=== PATIENT | female | born 1950 | race Caucasian/White ===

== ENCOUNTER 2020-12-05 11:06 | Emergency (ER) | payer MEDICARE, OTHER, SELFPAY ==
[2020-12-05 11:23] VITALS: BP 197/93; PULSE 77; RESP 14; TEMP 36.7; O2SAT 98; BMI 29.1
--- NOTE | 2020-12-05 12:13 | DI.CT.S_ITS ---
PROCEDURE: CT HEAD/BRAIN WO CON INDICATIONS: fall backward with soft tissue edema on occiput TECHNIQUE: Noncontrast 4.5 mm thick angled axial sections acquired from the foramen magnum to the vertex, with coronal and sagittal reformats. For radiation dose reduction, the following was used: automated exposure control, adjustment of mA and/or kV according to patient size. COMPARISON: None. FINDINGS: Image quality: Excellent. CSF spaces: Basal cisterns are patent. No extra-axial fluid collections. Ventricles are normal in size and shape. Brain: No midline shift. No intracranial masses or hemorrhage. Martinez-white matter interface is normal. Skull and face: Calvarium and visualized facial bones are intact, without suspicious lesions. Sinuses: Visualized sinuses and mastoids are clear. IMPRESSION: Negative for acute stroke, hemorrhage, or mass. No evidence of significant intracranial sequelae of acute trauma. Dictated by: Maurisio Taveras M.D. on 12/05/2020 at 13:02 Approved by: Maurisio Taveras M.D. on 12/05/2020 at 13:03
--- NOTE | 2020-12-05 12:13 | DI.CT.S_ITS ---
PROCEDURE: CT CERVICAL SPINE WO CON INDICATIONS: fall backwards with c2-4 pain on palpation TECHNIQUE: Noncontrast 3 mm thick sections acquired from the skull base to the T4 level. Sagittal and coronal reformats were then constructed. For radiation dose reduction, the following was used: automated exposure control, adjustment of mA and/or kV according to patient size. COMPARISON: None. FINDINGS: Image quality: Excellent. Bones: No fractures or dislocations. Visualized superior ribs are intact. Mild cervical spondylitic change. Soft tissues: Prevertebral soft tissues are normal in thickness. No paravertebral hematomas. No apical pneumothoraces. IMPRESSION: No evidence acute cervical fracture or dislocation. Mild cervical spondylitic change. Dictated by: Maurisio Taveras M.D. on 12/05/2020 at 13:03 Approved by: Maurisio Taveras M.D. on 12/05/2020 at 13:05
[2020-12-05 12:20] VITALS: BP 198/95; PULSE 86; RESP 18; O2SAT 99
--- NOTE | 2020-12-05 12:22 | ED.FALL ---
HPI - Fall <HALIMA Crespo - Last Filed: 12/05/20 13:45> General Chief Complaint: Fall Stated Complaint: Fell on back of head/right elbow/tailbone today Time Seen by Provider: 12/05/20 12:01 Source: patient Mode of arrival: Ambulatory History of Present Illness HPI Narrative: 70-year-old female presents to the emergency department brought in by POV with her after she tripped and fell backwards hitting the back of her head on this of floor and now complaining of head and neck pain. She denies losing consciousness, she states she was talking on the phone with her friend, her house is under construction, and she tripped over a 2 x 4, falling backwards hitting the back of her head on the floor. She states she told her friend that she fell and then got off of the phone. She called her to come pick her up and take her to the hospital because she states the sound of her head hitting the floor scared her. He denies any changes to her speech, mannerisms, activity, or mentation. She denies any changes in her balance, she does endorsing stars when this happened, she denies dizziness, nausea vomiting, vision changes, shortness of breath, chest pain, recent illness, or taking blood thinners. She states she does have a history of hypertension and takes have hydrochlorothiazide for this which she did take this morning. Fall from: standing Place fall occurred: home Loss of consciousness: none Prolonged down time: no Symptoms prior to fall: none Context: tripped/slipped Location of injury: head Associated symptoms (after fall): headache, neck pain and other Related Data Previous Rx's Medication Instructions Recorded methocarbamol 500 mg tablet 500 mg PO BEDTIME PRN #10 tab 12/05/20 Allergies Allergy/AdvReac Type Severity Reaction Status Date / Time morphine [MORPHINE] Allergy Unknown Verified 12/05/20 11:27 Review of Systems <HALIMA Crespo - Last Filed: 12/05/20 13:45> Review of Systems Narrative: General: denies fever, chills Head/Neck: endorses headache, now feeling neck pain, did not have pain in her neck until now. Eyes: denies visual changes, eye pain Cardio: denies chest pain, palpitations Respiratory: denies shortness of breath, cough GI: denies abdominal pain, nausea, vomiting, or diarrhea : denies dysuria, hematuria MSK: denies joint pain, muscle weakness Skin: denies rash, itching Neuro: denies numbness, tingling Patient History <HALIMA Crespo - Last Filed: 12/05/20 13:45> Social History Smoking Status: Unknown if ever smoked Smoking Status: Unknown if ever smoked alcohol intake frequency: holidays/special occasions only Substance Use Type: does not use Exam <HALIMA Crespo - Last Filed: 12/05/20 13:45> Narrative Exam Narrative: Independently reviewed vitals signs and nursing notes. General: Awake, alert, nontoxic, no cardiorespiratory distress Head/Neck: golf ball sized soft tissue edema over her occipital bone, small abrasion <1cm, no laceration, neck full range of motion with pain, Eyes: EOMI, conjunctiva normal, perrl Nose: nares patent, no rhinorrhea Mouth/Throat: moist mucus membranes, posterior pharynx normal, no oral lesions Cardio: Regular rate and rhythm, no peripheral edema, hypertensive Respiratory: respirations unlabored without wheezing, stridor, or rales. No retractions. GI: Abdomen soft, nontender MSK: Moves all extremities, neurovascularly intact Skin: Normal capillary refill, no rash Neuro: Normal speech and cognition, normal gait, cranial nerves 2-12 tested without any focal deficits Initial Vital Signs Initial Vital Signs: Vital Signs Temperature 98.0 F 12/05/20 11:23 Pulse Rate 77 12/05/20 11:23 Respiratory Rate 14 12/05/20 11:23 Blood Pressure 197/93 H 12/05/20 11:23 Pulse Oximetry 98 12/05/20 11:23 <Irwin Feng DO - Last Filed: 12/05/20 14:34> Initial Vital Signs Initial Vital Signs: Vital Signs Temperature 98.0 F 12/05/20 11:23 Pulse Rate 77 12/05/20 11:23 Respiratory Rate 14 12/05/20 11:23 Blood Pressure 197/93 H 12/05/20 11:23 Pulse Oximetry 98 12/05/20 11:23 Scores <HALIMA Crespo - Last Filed: 12/05/20 13:45> Nexus Score for C-Spine Focal Neurologic deficit present: No Midline spinal tenderness present: Yes Altered level of conciousness present: No Intoxication present: No Distracting Injury Present: No Nexus Criteria for C-spine: 1 <Irwin Feng DO - Last Filed: 12/05/20 14:34> Nexus Score for C-Spine Nexus Criteria for C-spine: 1 Course <HALIMA Crespo - Last Filed: 12/05/20 13:45> Orders Ordered: ED Orders 12/05/20 12:12 Urine Culture Stat Urine Microscopic Stat 12/05/20 12:13 CT cervical spine wo con Stat CT head/brain wo con Stat Discontinued Medications Ketorolac Tromethamine (Ketorolac 30 Mg/Ml Vial) 15 mg IM NOW ONE Stop: 12/05/20 12:23 Last Admin: 12/05/20 12:32 Dose: 15 mg Documented by: SANDRA Methocarbamol (Methocarbamol 500 Mg Tablet) 500 mg PO NOW ONE Stop: 12/05/20 12:17 Last Admin: 12/05/20 12:33 Dose: 500 mg Documented by: SANDRA Tramadol HCl (Tramadol 50 Mg Tablet) 50 mg PO NOW ONE Stop: 12/05/20 12:17 Last Admin: 12/05/20 12:33 Dose: 50 mg Documented by: SANDRA Vital Signs Vital signs: Vital Signs - 8 hr 12/05/20 11:23 12/05/20 12:20 12/05/20 12:38 Temperature 98.0 F Pulse Rate 77 86 64 Respiratory Rate 14 18 17 Blood Pressure 197/93 H 198/95 H 171/79 H Pulse Oximetry 98 99 96 12/05/20 13:00 12/05/20 13:30 Temperature Pulse Rate 62 60 Respiratory Rate 18 Blood Pressure 171/79 H Pulse Oximetry 95 96 <Irwin Feng DO - Last Filed: 12/05/20 14:34> Orders Ordered: ED Orders 12/05/20 12:12 Urine Culture Stat Urine Microscopic Stat 12/05/20 12:13 CT cervical spine wo con Stat CT head/brain wo con Stat Discontinued Medications Ketorolac Tromethamine (Ketorolac 30 Mg/Ml Vial) 15 mg IM NOW ONE Stop: 12/05/20 12:23 Last Admin: 12/05/20 12:32 Dose: 15 mg Documented by: SANDRA Methocarbamol (Methocarbamol 500 Mg Tablet) 500 mg PO NOW ONE Stop: 12/05/20 12:17 Last Admin: 12/05/20 12:33 Dose: 500 mg Documented by: SANDRA Tramadol HCl (Tramadol 50 Mg Tablet) 50 mg PO NOW ONE Stop: 12/05/20 12:17 Last Admin: 12/05/20 12:33 Dose: 50 mg Documented by: SANDRA Vital Signs Vital signs: Vital Signs - 8 hr 12/05/20 11:23 12/05/20 12:20 12/05/20 12:38 Temperature 98.0 F Pulse Rate 77 86 64 Respiratory Rate 14 18 17 Blood Pressure 197/93 H 198/95 H 171/79 H Pulse Oximetry 98 99 96 12/05/20 13:00 12/05/20 13:30 Temperature Pulse Rate 62 60 Respiratory Rate 18 Blood Pressure 171/79 H Pulse Oximetry 95 96 MDM - Fall <AGUSTÍN CrespoP - Last Filed: 12/05/20 13:45> Lab Data Labs: Lab Results 12/05/20 Range/Units 12:12 Urine RBC 0-1/hpf (0-5/HPF) Urine WBC 10-30/hpf H (0-5/HPF) Ur Squamous Epith Cells 1-5 /hpf (0-5/HPF) Urine Bacteria None seen (None) Ur Culture Indicated? Culture not indicate Urine Dip Bedside Urine Glucose Negative Bedside Urine Bilirubin - Negative Bedside Urine Ketone - Negative Urine Specific [place] 1.015 Bedside Urine Occult Blood - Negative Bedside Urine pH 7 Bedside Urine Protein - Negative Bedside Urine Urobilinogen - Negative Bedside Urine Nitrite - Negative Bedside Urine Leukocytes ++ [address] scan - head: Radiologist's Impression: PROCEDURE: CT HEAD/BRAIN WO CON INDICATIONS: fall backward with soft tissue edema on occiput TECHNIQUE: Noncontrast 4.5 mm thick angled axial sections acquired from the foramen magnum to the vertex, with coronal and sagittal reformats. For radiation dose reduction, the following was used: automated exposure control, adjustment of mA and/or kV according to patient size. COMPARISON: None. FINDINGS: Image quality: Excellent. CSF spaces: Basal cisterns are patent. No extra-axial fluid collections. Ventricles are normal in size and shape. Brain: No midline shift. No intracranial masses or hemorrhage. Martinez-white matter interface is normal. Skull and face: Calvarium and visualized facial bones are intact, without suspicious lesions. Sinuses: Visualized sinuses and mastoids are clear. IMPRESSION: Negative for acute stroke, hemorrhage, or mass. No evidence of significant intracranial sequelae of acute trauma. Dictated by: Maurisio Taveras M.D. on 12/05/2020 at 13:02 Approved by: Maurisio Taveras M.D. on 12/05/2020 at 13:03 CT - cervical spine: Radiologist's Impression: PROCEDURE: CT CERVICAL SPINE WO CON INDICATIONS: fall backwards with c2-4 pain on palpation TECHNIQUE: Noncontrast 3 mm thick sections acquired from the skull base to the T4 level. Sagittal and coronal reformats were then constructed. For radiation dose reduction, the following was used: automated exposure control, adjustment of mA and/or kV according to patient size. COMPARISON: None. FINDINGS: Image quality: Excellent. Bones: No fractures or dislocations. Visualized superior ribs are intact. Mild cervical spondylitic change. Soft tissues: Prevertebral soft tissues are normal in thickness. No paravertebral hematomas. No apical pneumothoraces. IMPRESSION: No evidence acute cervical fracture or dislocation. Mild cervical spondylitic change. Dictated by: Maurisio Taveras M.D. on 12/05/2020 at 13:03 Approved by: Maurisio Taveras M.D. on 12/05/2020 at 13:05 [facility] Narrative Medical decision making narrative: This is a 70-year-old female who presents to the emergency department for pain over her occipital bone and neck pain after a ground level fall. Patient did not have any loss of consciousness, no emesis mental status changes, history and neurologic exam are reassuring, patient did not have any focal deficits. She has soft tissue swelling over her occipital bone the size of a golf ball without laceration. #415 - Emergency Medicine: Utilization of CT for Minor Blunt Head Trauma (Adult) [] Patient is 18 or older, presenting with minor blunt head trauma. Head CT (including cosigned orders) was ordered by an emergency physician locums urgent care for trauma because (select one or more): [SATISFIES MIPS PERFORMANCE] Reasons: [x] Patient is 65 or older [] Patient GCS < 15 [] Patient has focal neurologic deficit Noncontrast Head CT is negative for acute stroke, hemorrhage, or mass. No evidence of significant intracranial sequelae of acute trauma. Cervical spine CT without contrast showing no evidence of acute cervical fracture or dislocation. Mild cervical spondylitic changes present. This is most likely a head injury with possible concussion as patient does endorse having a headache. She does have myalgias in her shoulders as well. Headache considerations include, but not limited to: Subarachnoid hemorrhage, but unlikely as CT head did not show acute intracranial sequelae of trauma. She does not have vision changes, difficulty with balance, or med dull status changes. HTN Emergency considered, but thought unlikely as patient's blood pressure reduced from 190s/100s to 170s/80s after analgesia. Other serious diagnoses considered unlikely given lack of red flag findings such as sudden onset, increasing frequency, immunocompromise, systemic signs (fever, chills, stiff neck, or rash), focal neurologic findings, trauma, blood thinners, etc. <Irwin Feng, DO - Last Filed: 12/05/20 14:34> Lab Data Labs: Lab Results 12/05/20 Range/Units 12:12 Urine RBC 0-1/hpf (0-5/HPF) Urine WBC 10-30/hpf H (0-5/HPF) Ur Squamous Epith Cells 1-5 /hpf (0-5/HPF) Urine Bacteria None seen (None) Ur Culture Indicated? Culture not indicate Urine Dip Bedside Urine Glucose Negative Bedside Urine Bilirubin - Negative Bedside Urine Ketone - Negative Urine Specific [place] 1.015 Bedside Urine Occult Blood - Negative Bedside Urine pH 7 Bedside Urine Protein - Negative Bedside Urine Urobilinogen - Negative Bedside Urine Nitrite - Negative Bedside Urine Leukocytes ++ 125 Esterase Discharge Plan Departure Patient Disposition: Home Clinical Impression: Head injury due to trauma Qualifiers: Encounter type: initial encounter Qualified Code(s): S09.90XA - Unspecified injury of head, initial encounter Instructions: How to Prevent Falls Activity Restrictions/Additional Instructions: *You have been diagnosed with a [head injury, neck pain and a possible concussion] *What to do: *Take medications as directed *Follow up with your primary care provider in 2-3 days, call for an appointment. Let them know you were seen in the Emergency Department and that we ask that you be seen in follow up *Return to ER if you should have any new, worsening or concerning symptoms, such as [ fever > 101F, neck pain or stiffness, vomiting, confusion, seizure, focal weakness, vision change, speech deficit or other concerning symptoms ] *If you do not have a primary care provider please contact the [facility] Resource line at [phone]. They will ask some questions about your medical history and help get you set up with a doctor in the community. Prescriptions: New methocarbamol 500 mg tablet 500 mg PO BEDTIME PRN (Reason: Muscle spasms) Qty: 10 RF: 0 Referrals: Nancy Alarcon DO [Primary Care Provider] - <Irwin Feng DO - Last Filed: 12/05/20 14:34> Cosign ED Attending Cosignature Attestation: Dr Feng Co-Sign Statement: I was available for consultation during this patient's emergency department visit. This chart is signed by myself for administrative purposes only. I did not have direct contact with this patient during this visit. They were seen independently by the APC.
[2020-12-05] MEDS: KETOROLAC 30 MG/ML VIAL 15 MG IM (12:32)
[2020-12-05] MEDS: methocarbamoL 500 MG TABLET PO (12:33)
[2020-12-05] MEDS: TRAMADOL 50 MG TABLET PO (12:33)
[2020-12-05 12:38] VITALS: BP 171/79; PULSE 64; PULSE 67; RESP 17; RESP 18; O2SAT 96; O2SAT 99
[2020-12-05 13:00] VITALS: PULSE 62; O2SAT 95
[2020-12-05 13:03] LABS: Bacteria Urine None Seen; RBC Urine 0-1/HPF (0-5/HPF); Squamous Epithelial Cell Urine 1-5 /HPF (0-5/HPF); WBC Urine 10-30/HPF (0-5/HPF)
[2020-12-05 13:30] VITALS: BP 171/79; PULSE 60; RESP 18; O2SAT 96
== END 2020-12-05 13:50 | disposition home or self-care (01) ==
PROVIDERS: Emergency Provider Nurse Practitioner Critical Care Medicine; PCP Family Medicine
DX: S09.8XXA Other specified injuries of head, initial encounter (principal); M54.2 Cervicalgia; W01.198A Fall on same level from slipping, tripping and stumbling with subsequent striking against other object, initial encounter
CPT/HCPCS: 70450; 72125; 81003; 81015; 87086; 96372; 99284; J1885

== ENCOUNTER 2021-01-20 09:05 | Emergency (ER) | payer MEDICARE, OTHER, SELFPAY ==
[2021-01-20 09:31] VITALS: BP 174/86; PULSE 92; RESP 18; TEMP 35.9; O2SAT 98; BMI 30.5
[2021-01-20 09:47] LABS: Appearance Urine UA Turbid; Color Urine UA Red
[2021-01-20 09:48] LABS: Bacteria Urine None Seen; Culture Indicated Urine Specimen Cultured; RBC Urine >100/HPF (0-5/HPF); WBC Urine >100/HPF (0-5/HPF)
--- NOTE | 2021-01-20 09:48 | ED.FEMALEGU ---
HPI - Female Genitourinary General Chief complaint: Urogenital-Female Stated complaint: blood in urine, going to bathroom a lot Time Seen by Provider: 01/20/21 09:20 Source: patient and family Mode of arrival: Ambulatory Limitations: no limitations History of Present Illness HPI Narrative: Otherwise healthy 70-year-old woman with a distant history of cystocele repair and recurrent cystocele, hypertension presents with acute onset of dysuria and hematuria. Symptoms started about 2:00 a.m. with dysuria shortly followed by mild hematuria and by this morning she is noticing blood clots with urination and frequency. She is having bladder spasm but no abdominal pain, no vaginal complaints no change to bowel habits. She reports no fevers, prior history of urinary tract infections, no complications with kidney stones or renal system. No chest pain, palpitations or headaches. Related Data Previous Rx's Medication Instructions Recorded methocarbamol 500 mg tablet 500 mg PO BEDTIME PRN #10 tab 12/05/20 cephalexin 500 mg capsule 500 mg PO TID #15 cap 01/20/21 phenazopyridine 100 mg tablet 100 mg PO TID PRN #6 tab 01/20/21 (Pyridium) Allergies Allergy/AdvReac Type Severity Reaction Status Date / Time morphine [MORPHINE] Allergy Unknown Verified 12/05/20 11:27 Review of Systems Review of Systems Narrative: Remainder of complete review of systems is otherwise unremarkable except for that included in the HPI. Patient History Medical History (Updated 01/20/21 @ 09:55 by Yoselin Rhodes MD) Cystocele Hypertension alcohol intake frequency: holidays/special occasions only Substance Use Type: does not use Exam Narrative Exam Narrative: General: Alert appropriate in no acute distress Respiratory: Able to speak in full sentences, no obvious respiratory distress Abdomen: No abdominal tenderness, mild suprapubic tenderness, no flank pain. Skin: No obvious rashes, warm and dry Neurologic: Grossly intact no obvious asymmetries or abnormalities Psych: appropriate insight and affect, cooperative Initial Vital Signs Initial Vital Signs: Vital Signs Temperature 96.7 F L 01/20/21 09:31 Pulse Rate 92 H 01/20/21 09:31 Respiratory Rate 18 01/20/21 09:31 Blood Pressure 174/86 H 01/20/21 09:31 Pulse Oximetry 98 01/20/21 09:31 Course Orders Ordered: ED Orders 01/20/21 09:38 Urinalysis and Microscopic Stat Urine Culture Stat Cephalexin HCl (Cephalexin 250 Mg Capsule) 500 mg PO NOW ONE Stop: 01/20/21 09:49 Phenazopyridine HCl (Phenazopyridine 100 Mg Tablet) 100 mg PO NOW ONE Stop: 01/20/21 09:49 Vital Signs Vital signs: Vital Signs - 8 hr 01/20/21 09:31 Temperature 96.7 F L Pulse Rate 92 H Respiratory Rate 18 Blood Pressure 174/86 H Pulse Oximetry 98 MDM - Female Genitourinary Lab Data Labs: Lab Results 01/20/21 Range/Units 09:38 Urine Color Red Urine Appearance Turbid Urine pH TNP Ur Specific [place] TNP Urine Protein TNP Urine Glucose (UA) TNP Urine Ketones TNP Urine Occult Blood TNP Urine Nitrate TNP Urine Bilirubin TNP Urine Urobilinogen TNP Ur Leukocyte Esterase TNP Urine RBC >100/hpf H (0-5/HPF) Urine WBC >100/hpf H (0-5/HPF) Urine Bacteria None seen (None) Ur Culture Indicated? Specimen cultured MDM Narrative Medical decision making narrative: 70-year-old woman with acute onset hematuria and dysuria with no systemic symptoms of pyelonephritis, sepsis, kidney stones. She is not on blood thinners has never had this type of bleeding before. With the dysuria and frequency I suspect that this is a simple bladder infection will treat with Keflex and peridium. If symptoms do not improve will clearly need additional workup. Given the symptomatic hematuria the probability of some type of bladder neoplasm is far less likely at this time. She is safe for home discharge Discharge Plan Departure Patient Disposition: Home Clinical Impression: Urinary tract infection Instructions: DI for Urinary Tract Infection (UTI) Activity Restrictions/Additional Instructions: Thank you for coming in today Your symptoms are very consistent with a simple bladder infection. I am going to have you take 5 days of cephalexin, 3 times a day , an antibiotic to get rid of the infection. For your pain symptoms, I am going to have you use Pyridium, this is medication that helps with bladder spasms If you have developing fevers, abdominal pain, flank pain or new symptoms or your symptoms are not improved by tomorrow, you do need to return to the emergency department. Your urine has been cultured and if the bacteria that grows is not treated with cephalexin, we will give you a call to change antibiotics. I hope you feel better Prescriptions: New cephalexin 500 mg capsule 500 mg PO TID Qty: 15 0RF phenazopyridine [Pyridium] 100 mg tablet 100 mg PO TID PRN (Reason: pain) Qty: 6 0RF No Action methocarbamol 500 mg tablet 500 mg PO BEDTIME PRN (Reason: Muscle spasms) Qty: 10 0RF Referrals: Nancy Alarcon DO [Primary Care Provider] -
[2021-01-20] MEDS: cephALEXin 250 MG CAPSULE 500 MG PO (10:16)
[2021-01-20] MEDS: PHENAZOPYRIDINE 100 MG TABLET PO (10:16)
[2021-01-20 10:45] VITALS: BP 147/74; PULSE 65; RESP 16; O2SAT 99
== END 2021-01-20 10:50 | disposition home or self-care (01) ==
PROVIDERS: Emergency Provider Emergency Medicine; PCP Family Medicine
DX: N39.0 Urinary tract infection, site not specified (principal)
CPT/HCPCS: 81001; 87077; 87086; 87186; 99283

== ENCOUNTER → 2021-02-02 12:44 | Outpatient (CLI) | payer MEDICARE, OTHER, SELFPAY | PROVIDERS: PCP Family Medicine; Visit Provider Physician Assistant | DX: N39.0 Urinary tract infection, site not specified (principal) | CPT/HCPCS: 87077; 87086; 87186 ==

== ENCOUNTER → 2021-03-06 13:28 | Outpatient (CLI) | payer MEDICARE, OTHER, SELFPAY ==
--- NOTE | 2021-03-06 | DI.MRI.S_ITS ---
PROCEDURE: MR HEAD/BRAIN WO CON INDICATIONS: Other amnesia TECHNIQUE: Non-contrast axial T1 spin echo, axial T2 fast spin echo, sagittal and axial FLAIR, coronal T2 fast spin echo, axial gradient echo, axial diffusion and ADC through the brain. COMPARISON: None. FINDINGS: Image quality: This examination is limited by involuntary motion artifact. CSF spaces: Ventricles appear symmetric in size and shape. Basal cisterns are patent. No extra-axial fluid collections. Brain: No intracranial bleeds or mass effects. There is cerebral volume loss for age. There are periventricular and deep white matter chronic small vessel ischemic changes. Brainstem appears normal. Diffusion-weighted images show no acute ischemic insults. No chronic ischemic insults. Normal intravascular flow voids are present. Skull and face: Calvarial bone marrow is normal in signal. Orbits are normal. Note is made of bilateral lens replacements. Sinuses: Sinuses and mastoids are clear. IMPRESSION: Unremarkable intracranial study for age, with note made of brain parenchymal volume loss and chronic small vessel ischemic change. No findings of acute or subacute infarction can be seen. Dictated by: Yong Arriaza M.D. on 03/06/2021 at 13:58 Approved by: Yong Arriaza M.D. on 03/06/2021 at 13:59
== END ==
PROVIDERS: PCP Family Medicine; Referring Provider Family Medicine; Visit Provider Family Medicine
DX: R41.3 Other amnesia (principal)
CPT/HCPCS: 70551

== ENCOUNTER 2023-03-28 19:11 | Emergency (ER) | payer MEDICARE, OTHER, SELFPAY ==
[2023-03-28 19:18] VITALS: BP 176/84; PULSE 72; RESP 16; TEMP 36.2; O2SAT 97; BMI 30.8
--- NOTE | 2023-03-28 19:34 | ED.GENADULT ---
HPI - General Adult General Chief complaint: Ear Stated complaint: rubber end of hearing aid lodged in ear Time Seen by Provider: 03/28/23 19:27 Source: patient and family Mode of arrival: Ambulatory History of Present Illness HPI narrative: Patient is a 72-year-old female with a piece of her hearing aid stuck in her left ear canal. She has never had this happened before. When she took the hearing aid out earlier today the police did not come with it. She did not attempt to remove it at home prior to arrival. Related Data Previous Rx's Medication Instructions Recorded phenazopyridine 100 mg tablet 100 mg PO TID PRN pain 6 doses #6 01/20/21 (Pyridium) tabs Allergies Allergy/AdvReac Type Severity Reaction Status Date / Time morphine [MORPHINE] Allergy Unknown Verified 02/02/21 12:00 Review of Systems ENT Ears, Nose, Mouth, and Throat: Reports system reviewed and no additional complaints, except as documented Patient History Medical History Cystocele Hypertension Social History Smoking Status: Never smoker Smoking Status: Never smoker alcohol intake frequency: holidays/special occasions only Substance Use Type: does not use Exam Initial Vital Signs Initial Vital Signs: Vital Signs Temperature 97.1 F L 03/28/23 19:18 Pulse Rate 72 03/28/23 19:18 Respiratory Rate 16 03/28/23 19:18 Blood Pressure 176/84 H 03/28/23 19:18 Pulse Oximetry 97 03/28/23 19:18 Oxygen Delivery Method Room Air 03/28/23 19:18 [facility] Other: What appears to be a piece of rubber in the left external auditory canal Procedures Foreign Body EAR Location: ear canal (L) Foreign Body Suspected: other (Piece of hearing aid) TM intact pre-procedure: unable to visualize Foreign Body Removed: yes Foreign Body Removal Technique: instrumentation Tympanic Membrane Intact Post Procedure: Yes Patient Tolerated Procedure: Well and No complications Course Vital Signs Vital signs: Vital Signs - 8 hr 03/28/23 19:18 Temperature 97.1 F L Pulse Rate 72 Respiratory Rate 16 Blood Pressure 176/84 H Pulse Oximetry 97 Oxygen Delivery Method Room Air Medical Decision Making [facility] Narrative Medical decision making narrative: He was unable to visualize the tympanic membrane prior to removal of the piece of rubber. The portion of the hearing aid was removed without incident. Afterwards the tympanic membrane is intact. The external auditory canal is intact. Patient states she feels better. Discharge patient home with return precautions. Discharge Plan Departure Patient Disposition: Home Clinical Impression: Foreign body in left ear Activity Restrictions/Additional Instructions: I was able to completely remove the piece from the hearing aid. It appears that your eardrum is intact without any damage. The ear canal was intact without any damage as well. Return to the emergency department for new symptoms. Prescriptions: No Action phenazopyridine [Pyridium] 100 mg tablet 100 mg PO TID PRN (Reason: pain) Qty: 6 0RF Referrals: Nancy Alarcon DO [Primary Care Provider] - Stand Alone Forms: Patient Portal/API
== END 2023-03-28 19:42 | disposition home or self-care (01) ==
PROVIDERS: Emergency Provider Emergency Medicine; PCP Family Medicine
DX: T16.2XXA Foreign body in left ear, initial encounter (principal)
CPT/HCPCS: 69200; 99281; 99282

== ENCOUNTER → 2023-09-07 17:40 | Outpatient (CLI) | payer MEDICARE, OTHER, SELFPAY ==
--- NOTE | 2023-09-07 17:42 | DI.RAD.S_ITS ---
PROCEDURE: XR SHOULDER LT MIN 2V INDICATIONS: LUE/shoulder pain TECHNIQUE: 3 views of the shoulder were acquired. COMPARISON: None. FINDINGS: Bones: No fractures or dislocations. [place] inferior to the AC joint. Moderate degenerative changes. No suspicious bony lesions. Visualized ribs appear intact. Soft tissues: No suspicious soft tissue calcifications. IMPRESSION: No fracture seen. [place] inferior to the AC joint. This could represent a loose body or in the setting of prior calcific tendinitis. Moderate left shoulder degenerative changes. Dictated by: Alfredo Chavez M.D. on 09/07/2023 at 19:21 Approved by: Alfredo Chavez M.D. on 09/07/2023 at 19:22
--- NOTE | 2023-09-07 17:42 | DI.RAD.S_ITS ---
PROCEDURE: XR CERVICAL SPINE 2V OR 3V INDICATIONS: LUE pain TECHNIQUE: 3 view(s) of the cervical spine were acquired. COMPARISON: [facility], CT, CT CERVICAL SPINE WO CON, 12/05/2020, 12:46. FINDINGS: Bones: No fractures or dislocations to the C7 level. Moderate degenerative changes in the cervical spine. This is demonstrable by joint space loss, uncovertebral joint hypertrophy, and small osteophytes. The lateral masses of C1 appear intact on the odontoid view. No suspicious bony lesions. Soft tissues: No prevertebral soft tissue swelling. IMPRESSION: Moderate degenerative changes in the cervical spine. Dictated by: Alfredo Chavze M.D. on 09/07/2023 at 19:22 Approved by: Alfredo Chavez M.D. on 09/07/2023 at 19:24
== END ==
PROVIDERS: PCP Family Medicine; Referring Provider Physician Assistant Surgical; Visit Provider Physician Assistant Surgical
DX: M25.512 Pain in left shoulder (principal); M47.22 Other spondylosis with radiculopathy, cervical region
CPT/HCPCS: 72040; 73030

== ENCOUNTER → 2023-10-16 08:45 | Outpatient (CLI) | payer MEDICARE, OTHER, SELFPAY ==
--- NOTE | 2023-10-16 | DI.MRI.S_ITS ---
PROCEDURE: MR SHOULDER LT WO CON INDICATIONS: Impingement syndrome of left shoulder TECHNIQUE: Noncontrast oblique coronal T2 fast spin echo with fat saturation, oblique sagittal T1 spin echo and T2 fast spin echo with fat saturation, axial T1 spin echo and T2 fast spin echo with fat saturation through the shoulder. COMPARISON: None. FINDINGS: Image quality: Excellent. Rotator cuff: There is full-thickness rupture of distal supraspinatus at its insertion on the humeral head with up to 2.1 cm medial retraction of torn tendon fibers to the level of acromion. Moderate grade articular surface partial-thickness tear involving distal infraspinatus is seen at its insertion on the humeral head extending to musculotendinous junction. Tendinosis and low-grade intrasubstance partial-thickness tear involving distal subscapularis is also noted. Sagittal images demonstrate moderate supraspinatus muscle atrophy. Bones and bursae: No bone marrow contusions or fractures. Moderate acromioclavicular joint and glenohumeral joint osteoarthritic changes are seen with joint space narrowing, subchondral sclerosis and marginal osteophyte formation. There is type 1 acromion without an os acromiale. There is moderate amount of joint fluid and subacromial subdeltoid bursal fluid, 1.1 x 1.2 cm loose body is noted in subcoracoid bursa series 6, image 13 and series 8, image 3. Capsule and soft tissues: There is extensive fraying of posterior superior glenoid labrum with T2 hyperintense signal suggestive of extensive posterior superior labral tear. The long head of the biceps tendon demonstrates normal location and morphology. The rotator interval appears normal, without fibrosis. The coracohumeral ligament is normal in thickness. IMPRESSION: 1. Full-thickness rupture of distal supraspinatus at its insertion on the humeral head with up to 2.1 cm medial retraction of torn tendon fibers to the level of acromion. Moderate supraspinatus muscle atrophy. 2. [id number] articular surface partial-thickness tear involving distal infraspinatus extending to musculotendinous junction. Low-grade intrasubstance partial-thickness tear involving distal subscapularis. 3. No marrow edema. No acute fracture or dislocation. Moderate acromioclavicular joint and glenohumeral joint osteoarthritis. Moderate amount of subacromial subdeltoid bursal fluid and subcoracoid bursal fluid with suggestion loose body within subcoracoid bursa as above. 4. Finding is concerning for left glenoid posterior superior labral tear. Dictated by: Vlad Negrete M.D. on 10/16/2023 at 12:47 Approved by: Vlad Negrete M.D. on 10/16/2023 at 12:55
== END ==
PROVIDERS: PCP Family Medicine; Referring Provider Family Medicine; Visit Provider Family Medicine
DX: S46.012A Strain of muscle(s) and tendon(s) of the rotator cuff of left shoulder, initial encounter (principal); M19.012 Primary osteoarthritis, left shoulder; M62.512 Muscle wasting and atrophy, not elsewhere classified, left shoulder; M75.42 Impingement syndrome of left shoulder
CPT/HCPCS: 73221

== ENCOUNTER → 2023-11-23 12:02 | Outpatient (CLI) | payer MEDICARE, OTHER, SELFPAY ==
--- NOTE | 2023-11-23 12:04 | DI.ECHO.S_ITS ---
[facility] : : [address] : : [place] : : [id number] : : Phone: [phone] Echocardiogram Report + + :Name: CHRISTIANO BLUE Study Date: 11/23/2023 Height: 67 in : :[facility] ReadingLocation: Weight: 198 lb : : Gender: Female BSA: 2.0 m2 : :: 1950 Age: 73 yrs BP: 154/94 mmHg: :Reason For Study: Atrial fibrillation - paroxysmal : :Ordering Physician: CHELITA, : :DEDRA Montes Performed By: Alexia Wells : :Referring: DEDRA MERLOS : + + Interpretation Summary Normal left ventricle size with ejection fraction 60-65%. Mild mitral regurgitation. Procedure: A two-dimensional transthoracic echocardiogram with color flow and Doppler was performed. The study quality was technically adequate. There is no prior echocardiogram noted for this patient. The patient was in sinus rhythm with heart rates between 47-60 bpm during the exam. Left Ventricle: The left ventricle is normal in size and wall thickness. The ejection fraction is estimated to be 60-65%. There are no focal wall motion abnormalities. Diastolic function could not be accurately assessed due to confounding valvular disease. Right Ventricle: The right ventricle is normal in size and function. Atria: Both atria are normal in size. Doppler interrogation and injection of saline echo contrast shows no evidence for an interatrial shunt. Mitral Valve: The mitral valve leaflets appear normal. There is no evidence of stenosis, fluttering, or prolapse. No significant mitral valve stenosis. There is mild mitral regurgitation. Aortic Valve: The aortic valve is trileaflet. The aortic valve opens well. There is no aortic valve stenosis. No aortic regurgitation is present. Tricuspid Valve: The tricuspid valve leaflets are thin and pliable. There is a trace or physiologic amount of tricuspid regurgitation. The right ventricular systolic pressure is estimated to be at least 17 mmHg based on an estimated right atrial pressure of 3 mm Hg. Pulmonic Valve: The pulmonic valve leaflets are thin and pliable; valve motion is normal. There is a trace or physiologic amount of pulmonic regurgitation. Great Vessels: The aortic root is normal size. The ascending aorta is normal in size. The aortic arch is normal in size. The pulmonary artery is normal size. The IVC is of normal diameter and collapses greater than 50% with a sniff. This suggests a low right atrial pressure of 3 mm Hg. Pericardium/ Pleura There is an anterior echo-free space consistent with a fat pad. There is a trivial pericardial effusion noted. There is no pleural effusion. MMode/2D Measurements & Calculations LVIDd: 4.6 cm LVOT diam: 1.9 cm LVIDs: 3.5 cm Ao root diam: 3.0 cm FS: 24.6 % asc Aorta Diam: 3.3 cm EPSS: 0.37 cm IVSd: 0.80 cm LVPWd: 0.79 cm LV saldivar. diameter/BSA (cm/m^2): 2.3 LV sys. diameter/BSA (cm/m^2): 1.7 LA A2 area: 12.9 cm2 RA long axis: 4.6 cm LA A4 area: 15.2 cm2 RA area: 11.4 cm2 LA length (vol): 5.1 cm RA vol: 24.4 ml LA vol: 32.2 ml RA : 12.1 ml/m2 LA vol index: 16.0 ml/m2 IVC diam: 2.0 cm TAPSE: 2.1 cm LVAd ap4: 23.8 cm2 LVAs ap4: 14.1 cm2 LVLs ap4: 6.1 cm LVAd ap2: 26.4 cm2 LVLd ap2: 7.0 cm LVAs ap2: 11.5 cm2 LVLs ap2: 5.5 cm Doppler Measurements & Calculations Ao V2 max: 118.5 cm/sec LVOT Max Kenneth: 85.3 cm/sec Ao V2 mean: 79.2 cm/sec LV V1 max P.9 mmHg Ao max P.6 mmHg LV V1 VTI: 21.2 cm Ao mean P.8 mmHg PENNY(I,D): 2.0 cm2 Ao V2 VTI: 28.3 cm PENNY(V,D): 1.9 cm2 sev ratio: 0.75 PENNY indexed to BSA (cm^2/m^2): 1.0 MV E max kenneth: 95.0 cm/sec TR max kenneth: 185.6 cm/sec MV A max kenneth: 63.0 cm/sec TR max P.8 mmHg MV E/A: 1.5 PA pr(Accel): 24.2 mmHg Med Peak E' Kenneth: 7.2 cm/sec E/E' med: 13.2 Lat Peak E' Kenneth: 9.0 cm/sec E/E' lat: 10.6 E/e' average: 11.9 MV dec time: 0.19 sec SV(LVOT): 57.5 ml Electronically signed by: Kayden Murguia on Reading Physician:11/23/2023 05:30 PM
== END ==
LOC: ECHO 12:03
PROVIDERS: PCP Family Medicine; Referring Provider Family Medicine; Visit Provider Family Medicine
DX: I34.0 Nonrheumatic mitral (valve) insufficiency (principal); I48.0 Paroxysmal atrial fibrillation
CPT/HCPCS: 93306; Q9957

== ENCOUNTER 2024-09-09 16:17 | Emergency (ER) | payer MEDICARE, OTHER, SELFPAY ==
[2024-09-09] VITALS (14 sets, daily range): BP systolic 112–174; BP diastolic 57–85; PULSE 60–75; RESP 12–20; TEMP 36.6; O2SAT 88–99; BMI 30.4
[2024-09-09 17:06] LABS: Add Manual Diff / Slide Review NO; Hematocrit 46.2 % (36-46); Hemoglobin 16.0 g/dL (12.0-16.0); Lymphocytes Absolute Auto 1700 /uL (1100-4500); Mean Corpuscular HGB Conc 34.6 % (30-36); Mean Corpuscular Hemoglobin 29.8 PG (26-34); Mean Corpuscular Volume 86.1 fL (80-100); Platelet Count 297 X10^3/uL (150-400)
[2024-09-09 17:20] LABS: Alanine Aminotransferase 26 IU/L (<35); Albumin 4.7 g/dL (3.5-5.0); Albumin Globulin Ratio 1.5 (1.0-2.8); Alkaline Phosphatase 96 U/L (38-126); Blood Urea Nitrogen 15 mg/dL (7-17); Calcium 9.8 mg/dL (8.4-10.2); Carbon Dioxide 24 mmol/L (22-32); Chloride 98 mmol/L (98-107); Estimated Glomerular Filt Rate > 60 mL/min (>60); Globulin 3.1 g/dL (1.7-4.1); Glucose 147 mg/dL (70-99); HEMOLYSIS < 15 (0-50); Lipase 35 U/L (23-300); Potassium 3.3 mmol/L (3.4-5.1); Sodium 135 mmol/L (137-145); Total Protein 7.8 g/dL (6.3-8.2)
--- NOTE | 2024-09-09 17:44 | EKG_ITS ---
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
[2024-09-09 18:08] LABS: Culture Indicated Urine Cult Not Indicated
--- NOTE | 2024-09-09 19:19 | ED.ABDPAIN ---
HPI - Abdominal Pain General Chief Complaint: Abdominal Pain Stated Complaint: pain in left side, vomitting, diarrhea Time Seen by Provider: 09/09/24 19:19 Source: patient Mode of arrival: Ambulatory History of Present Illness HPI narrative: 74-year-old female has left lower quadrant abdominal pain with nausea and vomiting and diarrhea onset this morning about 6:00 a.m., multiple episodes nonbloody emesis through the day, multiple episodes of loose stool without black or red color throughout the day. Denies history of colitis, diverticulitis, Crohn's disease. No painful or frequent urination. Denies history of kidney stones. No trauma injury new activities. No recent exposure to antibiotics. No household members or close contacts to persons with similar symptoms. Denies headache. Related Data Previous Rx's ?Medication ?Instructions ?Recorded dicyclomine 20 mg tablet 20 mg PO BID #10 tabs 09/09/24 Allergies Allergy/AdvReac Type Severity Reaction Status Date / Time morphine (MORPHINE) Allergy Unknown Verified 09/09/24 16:25 Review of Systems Review of Systems Narrative: as per HPI Patient History Medical History Cystocele Hypertension Social History Smoking Status: Never smoker Smoking Status: Never smoker alcohol intake frequency: holidays/special occasions only Exam Narrative Exam Narrative: GENERAL: Well-developed patient, in mild distress. HEAD: Atraumatic. Normocephalic. EYES: Pupils equal round and reactive. Extraocular motions intact. No scleral icterus. No injection or drainage. ENT: Nose without bleeding, purulent drainage. Throat without erythema, tonsillar hypertrophy or exudate. Airway patent. NECK: Trachea midline. Non tender CARDIOVASCULAR: Regular rate and rhythm without murmurs, gallops, or rubs. RESPIRATORY: Clear to auscultation. Breath sounds equal bilaterally. No wheezes, rales, or rhonchi. GASTROINTESTINAL: Abdomen soft, non-tender, nondistended. Mild tenderness left lower quadrant. Bowel tones unremarkable. EXTREMITIES: No edema or joint tenderness. BACK: Nontender without deformity or crepitance. No flank tenderness. NEURO: AOx3. Motor functions grossly nonfocal. SKIN: No rash or erythema of visible areas Initial Vital Signs Initial Vital Signs: Vital Signs Temperature 97.8 F 09/09/24 16:23 Pulse Rate 68 09/09/24 16:23 Respiratory Rate 20 09/09/24 16:23 Blood Pressure 174/85 H 09/09/24 16:23 Pulse Oximetry 99 09/09/24 16:23 Oxygen Delivery Method Room Air 09/09/24 16:23 Course Orders Ordered: ED Orders 09/09/24 19:23 CT abdomen pelvis w con Stat Discontinued Medications Dicyclomine HCl (Dicyclomine 10 Mg Capsule) 20 mg PO NOW ONE Stop: 09/09/24 21:01 Last Admin: 09/09/24 21:38 Dose: 20 mg Documented By: AICHA Hydromorphone HCl (Hydromorphone Hcl 0.5 Mg/0.5 Ml Syringe) 0.5 mg IV NOW ONE Stop: 09/09/24 19:47 Last Admin: 09/09/24 19:52 Dose: 0.5 mg Documented By: AICHA Sodium Chloride (Normal Saline 0.9%) 1,000 mls @ 500 mls/hr IV BOLUS ONE Stop: 09/09/24 21:22 Last Infusion: 09/09/24 21:38 Dose: Infused Documented By: Admin: 09/09/24 19:43 Dose: 500 mls/hr Documented By: AICHA Ketorolac Tromethamine (Ketorolac 30 Mg/Ml Vial) 15 mg IV NOW ONE Stop: 09/09/24 19:38 Last Admin: 09/09/24 19:43 Dose: 15 mg Documented By: AICHA Loperamide HCl (Loperamide 2 Mg Capsule) 2 mg PO NOW ONE Stop: 09/09/24 21:01 Last Admin: 09/09/24 21:40 Dose: 2 mg Documented By: AICHA Ondansetron HCl (Ondansetron 4 Mg/2 Ml Inj) 4 mg IV NOW PRN PRN Reason: Nausea And Vomiting Ondansetron HCl (Ondansetron 4 Mg Odt) 4 mg PO NOW PRN PRN Reason: Nausea And Vomiting Ondansetron HCl (Ondansetron 4 Mg/2 Ml Inj) 4 mg IV NOW ONE Stop: 09/09/24 19:49 Last Admin: 09/09/24 19:52 Dose: 4 mg Documented By: AICHA Ondansetron HCl (Ondansetron 4 Mg Odt Prepack) 1 bottle MISC DIRECTED ONE Stop: 09/09/24 22:52 Potassium Chloride (Potassium Chloride 20 Meq/15 Ml Udc) 40 meq PO NOW ONE Stop: 09/09/24 19:21 Last Admin: 09/09/24 19:43 Dose: 40 meq Documented By: AICHA Vital Signs Vital signs: Vital Signs - 8 hr 09/09/24 20:00 09/09/24 20:30 09/09/24 21:00 Pulse Rate 68 67 Respiratory Rate 18 14 Blood Pressure 130/75 118/65 119/62 Pulse Oximetry 97 95 Oxygen Delivery Method Room Air 09/09/24 21:00 09/09/24 21:30 09/09/24 21:30 Pulse Rate 64 60 Respiratory Rate 17 16 Blood Pressure 112/57 L Pulse Oximetry 94 95 Oxygen Delivery Method 09/09/24 22:00 09/09/24 22:00 09/09/24 22:29 Pulse Rate 68 Respiratory Rate 13 Blood Pressure 124/66 Pulse Oximetry 97 98 Oxygen Delivery Method 09/09/24 22:30 09/09/24 22:30 Pulse Rate 75 Respiratory Rate 13 Blood Pressure 125/62 Pulse Oximetry 97 Oxygen Delivery Method MDM - Abdominal Pain Lab Data Attestation: I reviewed the patient's lab results. Lab results narrative: White blood cell count 11932, hemoglobin 16, platelets adequate. Glucose 147. BUN creatinine normal. Serum CO2 normal. Potassium 3.3 low, sodium 135 mildly low. Liver functions and lipase normal. Urinalysis negative. 09/09/24 16:53 09/09/24 16:53 Labs: Lab Results 09/09/24 09/09/24 Range/Units 16:53 17:50 WBC 12.2 H (4.5-11.0) X10^3/uL RBC 5.37 H (4.0-5.2) X10^6/uL Hgb 16.0 (12.0-16.0) g/dL Hct 46.2 H (36-46) % MCV 86.1 (80-100) fL MCH 29.8 (26-34) PG MCHC 34.6 (30-36) % RDW 12.9 (11.6-14.8) % Plt Count 297 (150-400) X10^3/uL Neut % (Auto) 82.2 H (50-75) % Lymph % (Auto) 13.6 L (25-40) % Gibson % (Auto) 3.2 (3-14) % Eos % (Auto) 0.4 L (2-4) % Baso % (Auto) 0.6 (0-2) % Neut # (Auto) 54290 H (6120-0139) /uL Lymph # (Auto) 1700 (1668-1800) /uL Gibson # (Auto) 400 (0-900) /uL Eos # (Auto) 0 (0-450) /uL Baso # (Auto) 100 (0-100) /uL Sodium 135 L (137-145) mmol/L Potassium 3.3 L (3.4-5.1) mmol/L Chloride 98 (98-107) mmol/L Carbon Dioxide 24 (22-32) mmol/L BUN 15 (7-17) mg/dL Creatinine 0.88 (0.52-1.04) mg/dL Estimated GFR > 60 (>60) mL/min BUN/Creatinine Ratio 17.0 (6-22) Glucose 147 H (70-99) mg/dL Calcium 9.8 (8.4-10.2) mg/dL Total Bilirubin 0.7 (0.2-1.3) mg/dL AST 35 (14-36) IU/L ALT 26 (<35) IU/L Alkaline Phosphatase 96 (38-126) U/L Total Protein 7.8 (6.3-8.2) g/dL Albumin 4.7 (3.5-5.0) g/dL Globulin 3.1 (1.7-4.1) g/dL Albumin/Globulin Ratio 1.5 (1.0-2.8) Lipase 35 (23-300) U/L Urine RBC 0-1/hpf D (0-5/HPF) Urine WBC 0-1/hpf (0-5/HPF) Ur Squamous Epith Cells 1-5 /hpf (0-5/HPF) Urine Bacteria Occasional (0-1) (None) Ur Culture Indicated? Cult not indicated Vol Urine Centrifuged 10ml (spun) Point of care testing: Urine Dip Bedside Urine Glucose Negative Bedside Urine Bilirubin - Negative Bedside Urine Ketone +/- 5 Urine Specific [place] 1.010 Bedside Urine Occult Blood - Negative Bedside Urine pH 7.0 Bedside Urine Protein - Negative Bedside Urine Urobilinogen - Negative Bedside Urine Nitrite - Negative Bedside Urine Leukocytes + [address] scan - abdomen/pelvis: Radiologist's Impression: Close Abdomen/Pelvis CT (Signed) Didier Lopez - 09/09/24 Launch?[address] [address] [address] Scan Report Signed Patient: Sakina Seth MR#: [id number] : 1950 Acct:[id number] Age/Sex: 74 / F Date of Service: 09/09/24 Loc: ED Accession Number: [id number] Procedure: CT abdomen pelvis w con Ordering Provider: Ervin Stapleton MD PROCEDURE: CT ABDOMEN PELVIS W CON INDICATIONS: L abd pain TECHNIQUE: After the administration of intravenous contrast, axial sections acquired from the lung bases to the pubic symphysis. Coronal and sagittal reformats were performed. For radiation dose reduction, the following was used: automated exposure control, adjustment of mA and/or kV according to patient size. COMPARISON: None. FINDINGS: Image quality: Diagnostic. Lower Chest: Small hiatal hernia. ABDOMEN: Liver: No solid mass. Gallbladder: Absent. Biliary ducts: No biliary dilation. Pancreas: No ductal dilation. Atrophic. A few pancreatic cystic lesions are present, largest measuring 1 cm in the pancreatic tail (series 2, image 39). Spleen: Size is within normal limits. Adrenal Glands: No adrenal nodules. Kidneys and Ureters: No hydronephrosis. No solid mass. No complex renal cystic lesion which requires follow up. Stomach and Bowel: Normal colonic caliber, without significant wall thickening. Normal appendix. Minimal diverticular disease. Peritoneum: No abnormal intraperitoneal fluid. No free air. Ventral Wall: No significant ventral hernia. Abdominal Nodes: No retroperitoneal or mesenteric adenopathy by size criteria. Vessels: Aorta and inferior vena cava are normal in size. PELVIS: Pelvic Organs: Unremarkable. Bladder: No bladder wall thickening, accounting for underdistention. Pelvic Nodes: No enlarged lymph nodes. Miscellaneous: No inguinal hernias are seen. Bones: No aggressive osseous abnormality. IMPRESSION: No acute abnormality to explain the patient's left lower quadrant pain. Mild diverticulosis without evidence of diverticulitis. No nephrolithiasis. Normal appendix. Dictated by: Didier Lopez M.D. on 09/09/2024 at 20:40 Approved by: Didier Lopez M.D. on 09/09/2024 at 20:45 ECG Data Attestation: I personally reviewed and interpreted this ECG as follows: Interpretation: 1744, low voltage, baseline artifact, P waves seemed to be visible lead 3, computer reading junctional rhythm but appears to be sinus, ventricular rate 68. No obvious ST segment elevation or depression changes. QRS 72, QTC 421. MDM Narrative Medical decision making narrative: 74-year-old female with nausea vomiting diarrhea, and left lower quadrant abdominal discomfort, no known colitis diverticulitis. Shaking chills. Afebrile, normotensive. DX consider colitis, diverticulitis, enteritis, UTI, other. Labs pending. Having pain, we would like pain medication, prior morphine allergy believes she can take IV Dilaudid, IV Dilaudid ordered. Lab data: White blood cell count 88070, hemoglobin 16, platelets adequate. Glucose 147. BUN creatinine normal. Serum CO2 normal. Potassium 3.3 low, sodium 135 mildly low. Liver functions and lipase normal. Urinalysis negative. Stool specimen for GI pathogens pending. PO potassium if nausea controlled GFR favorable. Shaking chills, left lower quadrant abdominal pain, urinalysis negative. Recent diarrhea. Stool studies requested. CT abdomen and pelvis ordered. CT abdomen and pelvis no acute changes. See radiology report. Patient given oral Bentyl, oral Imodium. Nausea improved, oral potassium taken. Stool specimen has been requested earlier, no specimen ever produced for laboratory analysis. Symptoms improved, pain seems better controlled. Discharged home with family. Prescription sent for further Bentyl to use if needed. Return precautions discussed. Discharge Plan Departure Patient Disposition: Home Clinical Impression: Nausea vomiting and diarrhea Activity Restrictions/Additional Instructions: Recent nausea and vomiting and diarrhea. While in the emergency department no stool specimen was collected to send to the lab for testing. Antinausea medications given, with improvement of symptoms. You has some discomfort and spasm, IV pain medication and antispasmodic dicyclomine was given. Potassium level was low, oral potassium was given. CT scan of the abdomen showed no acute changes. Symptoms most suspicious for viral illness. There are recent patient is in our community having norovirus with very similar symptoms. Treatment is symptomatic. Antispasmodics if needed. Antinausea medication if needed. Encouraged to take oral fluids. Consider potassium rich foods such as bananas and free leafy vegetables. Consider recheck with your regular doctor if you are having symptoms over the weekend. Return to this/nearest emergency department for any change worsening symptoms or any concerns prior. Prescriptions: New dicyclomine 20 mg tablet 20 mg PO BID Qty: 10 0RF Referrals: Nancy Alarcon DO [Primary Care Provider, Medical] Stand Alone Forms: Patient Portal/API
--- NOTE | 2024-09-09 19:23 | DI.CT.S_ITS ---
PROCEDURE: CT ABDOMEN PELVIS W CON INDICATIONS: L abd pain TECHNIQUE: After the administration of intravenous contrast, axial sections acquired from the lung bases to the pubic symphysis. Coronal and sagittal reformats were performed. For radiation dose reduction, the following was used: automated exposure control, adjustment of mA and/or kV according to patient size. COMPARISON: None. FINDINGS: Image quality: Diagnostic. Lower Chest: Small hiatal hernia. ABDOMEN: Liver: No solid mass. Gallbladder: Absent. Biliary ducts: No biliary dilation. Pancreas: No ductal dilation. Atrophic. A few pancreatic cystic lesions are present, largest measuring 1 cm in the pancreatic tail (series 2, image 39). Spleen: Size is within normal limits. Adrenal Glands: No adrenal nodules. Kidneys and Ureters: No hydronephrosis. No solid mass. No complex renal cystic lesion which requires follow up. Stomach and Bowel: Normal colonic caliber, without significant wall thickening. Normal appendix. Minimal diverticular disease. Peritoneum: No abnormal intraperitoneal fluid. No free air. Ventral Wall: No significant ventral hernia. Abdominal Nodes: No retroperitoneal or mesenteric adenopathy by size criteria. Vessels: Aorta and inferior vena cava are normal in size. PELVIS: Pelvic Organs: Unremarkable. Bladder: No bladder wall thickening, accounting for underdistention. Pelvic Nodes: No enlarged lymph nodes. Miscellaneous: No inguinal hernias are seen. Bones: No aggressive osseous abnormality. IMPRESSION: No acute abnormality to explain the patient's left lower quadrant pain. Mild diverticulosis without evidence of diverticulitis. No nephrolithiasis. Normal appendix. Dictated by: Didier Lopez M.D. on 09/09/2024 at 20:40 Approved by: Didier Lopez M.D. on 09/09/2024 at 20:45
[2024-09-09] MEDS: KETOROLAC 30 MG/ML VIAL 15 MG IV (19:43)
[2024-09-09] MEDS: SODIUM CHLORIDE 0.9% 1,000 ML 500 ML IV (19:43)
[2024-09-09] MEDS: POTASSIUM CHLORIDE 20 MEQ/15 ML UDC 40 MEQ PO (19:43)
[2024-09-09] MEDS: ONDANSETRON 4 MG/2 ML INJ IV (19:52)
[2024-09-09] MEDS: DICYCLOMINE 10 MG CAPSULE 20 MG PO (21:38)
[2024-09-09] MEDS: LOPERAMIDE 2 MG CAPSULE PO (21:40)
== END 2024-09-09 23:11 | disposition home or self-care (01) ==
PROVIDERS: Emergency Medicine; Emergency Provider Emergency Medicine; PCP Family Medicine
DX: R11.2 Nausea with vomiting, unspecified (principal); R19.7 Diarrhea, unspecified
CPT/HCPCS: 36415; 74177; 80053; 81003; 81015; 83690; 85025; 93005; 96361; 96374; 96375; 99284; J1171; J1885; J2405; Q9967

== ENCOUNTER → 2024-09-17 06:47 | Outpatient (CLI) | payer MEDICARE, OTHER, SELFPAY ==
--- NOTE | 2024-09-17 06:49 | DI.MRI.S_ITS ---
PROCEDURE: MR PELVIS WO/W CON INDICATIONS: PAIN TECHNIQUE: Coronal HASTE, sagittal breath-hold T2 FSE; axial T1 FSE with and without fat saturation through the pelvis. Optional long- and short-axis uterine nonbreath-hold T2 FSE through the uterus. Sagittal or axial dynamic VIBE during administration of contrast. Post-contrast axial or coronal VIBE/2-D FLASH with fat saturation from the iliac crests to the symphysis. Optional diffusion weighted imaging and ADC may be performed. COMPARISON: [facility], CT, CT ABDOMEN PELVIS W CON, 09/09/2024, 19:58. FINDINGS: Image quality: Excellent. Uterus: Surgically absent. The vaginal cuff is normal without associated mass or enhancement. There is [id number] prolapse of the anterior vaginal wall and posterior aspect of the urinary bladder measured at 2.8 cm below the pubococcygeal line. There is a small fat containing peritoneal seal. No definite rectal prolapse. Adnexa: A subcentimeter round cyst in the left adnexa in the expected location of residual ovarian tissue is noted. No suspicious enhancement. No other ovarian tissue is seen. No suspicious adnexal masses. Urinary system: Bladder wall is normal in thickness. Distal ureters are non distended. Urethra appears normal in morphology. No visible urethrocele. Nodes and vessels: No pelvic or inguinal adenopathy by size criteria. Iliac vessels are normal in size. No engorgement of ovarian veins or other pelvic vasculature. Bowel and peritoneum: No pathologic free pelvic fluid. Inferior colon and small bowel loops are normal in caliber. Soft tissues: No inguinal hernias. No findings of pelvic floor incompetence in the absence of provocation. Bones: Marrow demonstrates normal overall signal. IMPRESSION: Post hysterectomy. [id number] anterior pelvic floor prolapse. No suspicious adnexal masses. Subcentimeter left adnexal cyst may be a benign residual physiologic follicle. Dictated by: Amelia Baez M.D. on 09/19/2024 at 11:05 Approved by: Amelia Baez M.D. on 09/19/2024 at 11:30
== END ==
LOC: MRI 06:48
PROVIDERS: PCP Family Medicine; Referring Provider Family Medicine; Visit Provider Family Medicine
DX: N81.89 Other female genital prolapse (principal); N83.292 Other ovarian cyst, left side; R10.2 Pelvic and perineal pain; Z90.710 Acquired absence of both cervix and uterus
CPT/HCPCS: 72197; A9579